=== PATIENT | male | born 1980 | race African-American/Black ===

== ENCOUNTER 2017-09-06 11:53 | Inpatient (IN) | payer MEDICAID ==
[~2017-09-06] VITALS: Ht 172.7 cm; Wt 70.8 kg
[2017-09-06] MEDS ORDERED: SODIUM CHLORIDE 0.9% 1,000 ML IV ONE (12:06)
[2017-09-06] MEDS ORDERED: LORAZEPAM 2MG/ML CPJ IV ONE (12:15)
[2017-09-06 12:36] LABS: BASOPHILS % 0.5 % (0.0-2.0); EOSINOPHILS % 0.2 % (0.0-5.0); HEMATOCRIT. 46.3 % (42.0-52.0); LYMPHOCYTES % 21.7 % (20.0-50.0); MEAN CORPUSCULAR HEMOGLOBIN 32.3 pg (28.0-32.0); MEAN CORPUSCULAR VOLUME 99.6 fL (80.0-94.0); MEAN PLATELET VOLUME 8.6 fl (7.4-10.4); MONOCYTES % 7.5 % (2.0-8.0); NEUTROPHILS % 70.1 % (40.0-76.0); PLATELET 124 x1000/uL (130-400); RED BLOOD CELL COUNT 4.65 mill/uL (4.7-6.1); RED CELL DISTRIBUTION WIDTH 14.2 % (11.6-14.6)
[2017-09-06 12:40] LABS: PROTHROMBIN TIME 10.5 sec (9.4-11.6)
[2017-09-06 12:49] LABS: CARBON DIOXIDE 16 mEq/L (21-32); CHLORIDE 95 mEq/L (98-107); ETHANOL BLOOD < 10 mg/dL; TROPONIN I < 0.02 ng/mL (0.00-0.04)
[2017-09-06 12:59] LABS: AMMONIA 241 uMol/L (<32)
[2017-09-06] MEDS ORDERED: LACTULOSE 20G/30ML UDC PO ONE (13:15)
[2017-09-06 13:21] LABS: CLARITY URINE CLEAR (CLEAR); COLOR URINE ORANGE (YELLOW); GLUCOSE URINE NEGATIVE (NEGATIVE); KETONES URINE TRACE (NEGATIVE); LEUKOCYTE ESTERASE URINE TRACE (NEGATIVE); NITRITE URINE NEGATIVE (NEGATIVE); OCCULT BLOOD URINE TRACE (NEGATIVE); PROTEIN URINE 1+ (NEGATIVE); SPECIFIC GRAVITY URINE 1.012 (1.005-1.030)
[2017-09-06 13:43] LABS: *AMPHETAMINES SCREEN URINE NEGATIVE (NEGATIVE); *BARBITURATES SCREEN URINE NEGATIVE (NEGATIVE); *BENZODIAZEPINES SCREEN URINE NEGATIVE (NEGATIVE); *COCAINE SCREEN URINE NEGATIVE (NEGATIVE); CANNABINOID URINE SCREEN NEGATIVE (NEGATIVE); METHADONE URINE SCREEN NEGATIVE (NEGATIVE); OPIATES URINE SCREEN NEGATIVE (NEGATIVE); PHENCYCLIDINE URINE SCREEN NEGATIVE (NEGATIVE)
[2017-09-06 20:00] VITALS: BP 145/93
[2017-09-06] MEDS ORDERED: CLONIDINE 0.1MG TABLET PO PRN (21:15)
[2017-09-06] MEDS ORDERED: ACETAMINOPHEN 650MG/20.3ML UDC GT PRN (21:15)
[2017-09-06] MEDS ORDERED: MAGNESIUM/ALUMINUM HYDROXIDE/SIMETHICONE 30ML UDC PO PRN (21:15)
[2017-09-06] MEDS ORDERED: IPRATROPIUM/ALBUTEROL 0.5-3(2.5)MG/3ML NEB INH PRN (21:15)
[2017-09-06] MEDS ORDERED: ACETAMINOPHEN 325MG TABLET PO PRN (21:15)
[2017-09-06] MEDS ORDERED: DIPHENHYDRAMINE 50MG/ML VIAL IV PRN (21:15)
[2017-09-06] MEDS ORDERED: ACETAMINOPHEN 650MG SUPP PR PRN (21:15)
[2017-09-06 21:20] VITALS: BP 145/93
[2017-09-06] MEDS ORDERED: LEVE750T10 PO (21:33)
[2017-09-06] MEDS ORDERED: SODIUM BICARBONATE 8.4% 1 MEQ/ML 50ML SYR IV NR (21:41)
[2017-09-06] MEDS ORDERED: NA PHOS,M-B/NA PHOS,DI-BA ENEMA 118ML PR PRN (21:45)
[2017-09-06] MEDS ORDERED: SODIUM CHLORIDE 0.45% 1,000 ML IV SCH (21:45)
[2017-09-06] MEDS: CHLORDIAZEPOXIDE 25MG CAPSULE PO SCH (22:13)
[2017-09-06] MEDS: SODIUM CHLORIDE 0.9% INJ 3ML FLUSH IVF SCH (22:14)
[2017-09-06] MEDS: LACTULOSE 20G/30ML UDC PO SCH (22:14)
[2017-09-07] VITALS (7 sets, daily range): BP systolic 128–149; BP diastolic 86–98
[2017-09-07] MEDS: SODIUM CHLORIDE 0.9% INJ 3ML FLUSH IVF SCH ×3 (05:45→21:59)
[2017-09-07] MEDS: CHLORDIAZEPOXIDE 25MG CAPSULE PO SCH ×3 (05:45→21:59)
[2017-09-07] MEDS: LACTULOSE 20G/30ML UDC PO SCH ×3 (05:45→21:59)
[2017-09-07 07:05] LABS: BASOPHILS % 0.5 % (0.0-2.0); EOSINOPHILS % 0.7 % (0.0-5.0); HEMATOCRIT. 39.4 % (42.0-52.0); HEMOGLOBIN. 13.4 g/dL (14.0-18.0); LYMPHOCYTES % 12.9 % (20.0-50.0); MEAN CORPUSCULAR HEMOGLOBIN 32.5 pg (28.0-32.0); MEAN PLATELET VOLUME 8.6 fl (7.4-10.4); MONOCYTES % 7.2 % (2.0-8.0); NEUTROPHILS % 78.7 % (40.0-76.0); PLATELET 83 x1000/uL (130-400); RED CELL DISTRIBUTION WIDTH 13.8 % (11.6-14.6)
[2017-09-07 07:47] LABS: CARBON DIOXIDE 24 mEq/L (21-32); CHLORIDE 100 mEq/L (98-107)
[2017-09-07 07:50] LABS: PHOSPHORUS 2.5 mg/dL (2.5-4.9)
[2017-09-07] MEDS ORDERED: POTASSIUM CHLORIDE 20MEQ TABLET SR PO NR (12:15)
[2017-09-07] MEDS ORDERED: LORAZEPAM 2MG/ML CPJ IM PRN (12:15)
[2017-09-07 12:31] LABS: AMMONIA 24 uMol/L (<32)
== END 2017-09-07 23:00 | disposition short-term general hospital (02) | DRG 53 ==
LOC: ER 12:14 → 5WST 13:21 → ENRESERV 20:38
PROVIDERS: ADMIT Family Medicine; ATTEND Family Medicine
DX: G40.509 Epileptic seizures related to external causes, not intractable, without status epilepticus (principal); G93.41 Metabolic encephalopathy; K72.90 Hepatic failure, unspecified without coma; F10.239 Alcohol dependence with withdrawal, unspecified; I10 Essential (primary) hypertension; Z91.81 History of falling; F17.210 Nicotine dependence, cigarettes, uncomplicated
CPT/HCPCS: 36415; 70450; 70486; 76700; 80048; 80053; 80076; 80305; 81001; 82140; 84100; 84484; 85025; 85610; 93005; 96361; 96374; 97162; 99285; G0482; J2060; J3490; J7030

== ENCOUNTER 2017-10-09 15:50 | Emergency (ER) | payer MEDICAID ==
[~2017-10-09] VITALS: Ht 177.8 cm; Wt 88.0 kg
[~2017-10-09 15:50] MED LIST: LEVE750T10 PO
[2017-10-09] MEDS ORDERED: LEVETIRACETAM 500MG TABLET PO ONE (17:00)
[2017-10-09 17:31] LABS: BASOPHILS % 0.5 % (0.0-2.0); EOSINOPHILS % 0.1 % (0.0-5.0); HEMATOCRIT. 40.6 % (42.0-52.0); HEMOGLOBIN. 14.2 g/dL (14.0-18.0); LYMPHOCYTES % 9.1 % (20.0-50.0); MEAN CORPUSCULAR HEMOGLOBIN 33.7 pg (28.0-32.0); MEAN CORPUSCULAR VOLUME 96.3 fL (80.0-94.0); MEAN PLATELET VOLUME 8.4 fl (7.4-10.4); MONOCYTES % 7.9 % (2.0-8.0); NEUTROPHILS % 82.4 % (40.0-76.0); PLATELET 136 x1000/uL (130-400); RED BLOOD CELL COUNT 4.21 mill/uL (4.7-6.1); RED CELL DISTRIBUTION WIDTH 14.1 % (11.6-14.6)
[2017-10-09 17:44] LABS: CARBON DIOXIDE 27 mEq/L (21-32); CHLORIDE 98 mEq/L (98-107)
[2017-10-09 19:23] VITALS: BP 138/88
== END 2017-10-09 19:40 | disposition home or self-care (01) ==
LOC: ER 15:58
DX: G40.909 Epilepsy, unspecified, not intractable, without status epilepticus (principal); I10 Essential (primary) hypertension
CPT/HCPCS: 36415; 80053; 85025; 99284

== ENCOUNTER 2017-12-23 13:37 | Emergency (ER) | payer MEDICAID ==
[~2017-12-23] VITALS: Ht 170.2 cm; Wt 75.0 kg
[2017-12-23] MEDS ORDERED: SODIUM CHLORIDE 0.9% 1,000 ML IV ONE (14:03)
[2017-12-23] MEDS ORDERED: LEVETIRACETAM 500MG PREMIX 100 ML IV ONE (14:15)
[2017-12-23 14:42] LABS: BASOPHILS % 0.9 % (0.0-2.0); EOSINOPHILS % 0.5 % (0.0-5.0); HEMATOCRIT. 44.8 % (42.0-52.0); HEMOGLOBIN. 14.7 g/dL (14.0-18.0); LYMPHOCYTES % 18.4 % (20.0-50.0); MEAN CORPUSCULAR HEMOGLOBIN 32.5 pg (28.0-32.0); MEAN CORPUSCULAR VOLUME 99.5 fL (80.0-94.0); MEAN PLATELET VOLUME 7.7 fl (7.4-10.4); MONOCYTES % 12.5 % (2.0-8.0); NEUTROPHILS % 67.7 % (40.0-76.0); PLATELET 308 x1000/uL (130-400); RED BLOOD CELL COUNT 4.51 mill/uL (4.7-6.1); RED CELL DISTRIBUTION WIDTH 14.4 % (11.6-14.6)
[2017-12-23 14:46] LABS: PROTHROMBIN TIME 10.5 sec (9.4-11.6)
[2017-12-23 14:56] LABS: CHLORIDE 102 mEq/L (98-107)
[2017-12-23] MEDS ORDERED: POTASSIUM CHLORIDE 20MEQ TABLET SR PO ONE (16:45)
[2017-12-23 17:27] VITALS: BP 149/94
== END 2017-12-23 17:33 | disposition home or self-care (01) ==
LOC: ER 13:43
DX: G40.909 Epilepsy, unspecified, not intractable, without status epilepticus (principal); E87.6 Hypokalemia; I10 Essential (primary) hypertension; R79.1 Abnormal coagulation profile
CPT/HCPCS: 36415; 80053; 85025; 85610; 96365; 99285; J1953; J7030

== ENCOUNTER 2018-02-08 06:49 | Emergency (ER) | payer MEDICAID ==
[~2018-02-08] VITALS: Ht 172.7 cm; Wt 68.0 kg
[2018-02-08] MEDS ORDERED: ONDANSETRON HCL 4MG/2ML VIAL IV STA (07:12)
[2018-02-08] MEDS ORDERED: SODIUM CHLORIDE 0.9% 1,000 ML IV ONE (07:12)
[2018-02-08] MEDS ORDERED: LEVETIRACETAM 500MG TABLET PO ONE (07:15)
[2018-02-08 07:36] LABS: HEMATOCRIT. 46.6 % (42.0-52.0); HEMOGLOBIN. 15.5 g/dL (14.0-18.0); MEAN CORPUSCULAR HEMOGLOBIN 32.1 pg (28.0-32.0); MEAN CORPUSCULAR VOLUME 96.7 fL (80.0-94.0); MEAN PLATELET VOLUME 8.2 fl (7.4-10.4); PLATELET 99 x1000/uL (130-400); RED BLOOD CELL COUNT 4.81 mill/uL (4.7-6.1); RED CELL DISTRIBUTION WIDTH 13.7 % (11.6-14.6)
[2018-02-08 07:42] LABS: CHLORIDE 99 mEq/L (98-107)
[2018-02-08 08:02] LABS: PLATELET ESTIMATE SLIGHTLY DECREASED
[2018-02-08] MEDS ORDERED: LORAZEPAM 2MG/ML CPJ ONE (08:13)
[2018-02-08] MEDS ORDERED: LORAZEPAM 2MG/ML CPJ IV ONE (08:30)
[2018-02-08] MEDS ORDERED: LEVETIRACETAM 500MG PREMIX 100 ML IV ONE (08:30)
[2018-02-08 13:06] VITALS: BP 137/80
== END 2018-02-08 13:00 | disposition home or self-care (01) ==
LOC: ER 06:49
DX: R56.9 Unspecified convulsions (principal); I10 Essential (primary) hypertension
CPT/HCPCS: 36415; 80053; 85025; 85610; 96361; 96365; 96375; 99285; J1953; J2060; J2405; J7030; Z7610

== ENCOUNTER 2018-02-21 17:39 | Emergency (ER) | payer MEDICAID ==
[~2018-02-21] VITALS: Ht 170.2 cm; Wt 65.0 kg
[2018-02-21 18:52] LABS: HEMATOCRIT. 42.1 % (42.0-52.0); HEMOGLOBIN. 14.3 g/dL (14.0-18.0); MEAN CORPUSCULAR VOLUME 97.1 fL (80.0-94.0); MEAN PLATELET VOLUME 6.8 fl (7.4-10.4); PLATELET 272 x1000/uL (130-400); RED BLOOD CELL COUNT 4.34 mill/uL (4.7-6.1); RED CELL DISTRIBUTION WIDTH 14.2 % (11.6-14.6)
[2018-02-21 19:01] LABS: CHLORIDE 104 mEq/L (98-107)
[2018-02-21 19:12] LABS: PLATELET ESTIMATE NORMAL
[2018-02-21] MEDS ORDERED: LEVETIRACETAM 100MG/ML ORAL SYR PO ONE (20:15)
[2018-02-21 20:20] VITALS: BP 156/85
[2018-02-21] MEDS ORDERED: LEVETIRACETAM 500MG TABLET PO NR (20:30)
== END 2018-02-21 20:35 | disposition home or self-care (01) ==
LOC: ER 17:39
DX: G40.909 Epilepsy, unspecified, not intractable, without status epilepticus (principal); I10 Essential (primary) hypertension
CPT/HCPCS: 36415; 80048; 85025; 99284; Z7610

== ENCOUNTER 2020-02-01 21:49 | Emergency (ER) | payer MEDICAID ==
[~2020-02-01] VITALS: Ht 177.8 cm; Wt 77.0 kg
[2020-02-01] MEDS ORDERED: LEVETIRACETAM 500MG PREMIX 100 ML IV ONE (22:30)
[2020-02-01] MEDS ORDERED: LORAZEPAM 2MG/ML CPJ ONE (23:17)
[2020-02-01] MEDS ORDERED: LORAZEPAM 2MG/ML CPJ IV ONE (23:30)
[2020-02-01 23:46] LABS: HEMATOCRIT 42.2 % (42.0-52.0); HEMOGLOBIN 13.9 g/dL (14.0-18.0); MEAN CORPUSCULAR HEMOGLOBIN 34.3 pg (28.0-32.0); MEAN CORPUSCULAR VOLUME 104.3 fL (80.0-94.0); PLATELET 195 x1000/uL (130-400); RED BLOOD CELL COUNT 4.05 mill/uL (4.7-6.1); RED CELL DISTRIBUTION WIDTH 14.3 % (11.6-14.6)
[2020-02-01 23:51] LABS: CHLORIDE 102 mEq/L (98-107)
[2020-02-01 23:57] LABS: ETHANOL BLOOD 12 mg/dL
[2020-02-02] MEDS ORDERED: LORAZEPAM 2MG/ML CPJ IV ONE ×2 (00:15→01:15)
[2020-02-02] MEDS ORDERED: ZIPRASIDONE MESYLATE 20MG/VIAL IM ONE (02:30)
[2020-02-02 04:04] VITALS: BP 126/76
== END 2020-02-02 04:14 | disposition short-term general hospital (02) ==
LOC: ER 21:49
DX: R56.9 Unspecified convulsions (principal); I10 Essential (primary) hypertension; F10.129 Alcohol abuse with intoxication, unspecified; Y90.0 Blood alcohol level of less than 20 mg/100 ml
CPT/HCPCS: 36415; 70450; 80053; 80320; 85027; 96365; 96372; 96375; 96376; 99285; J1953; J2060; J3486; G0480

== ENCOUNTER 2021-12-03 18:05 | Emergency (ER) | payer MEDICAID ==
[~2021-12-03] VITALS: Ht 182.9 cm; Wt 102.0 kg
[2021-12-03 18:07] VITALS: BP 138/100
[2021-12-03 19:32] LABS: BASOPHILS % 0.3 % (0.0-2.0); EOSINOPHILS % 0.2 % (0.0-5.0); HEMATOCRIT. 42.5 % (42.0-52.0); HEMOGLOBIN. 14.4 g/dL (14.0-18.0); LYMPHOCYTES % 22.9 % (20.0-50.0); MEAN CORPUSCULAR HEMOGLOBIN 34.1 pg (28.0-32.0); MEAN CORPUSCULAR VOLUME 100.6 fL (80.0-94.0); MEAN PLATELET VOLUME 7.6 fl (7.4-10.4); MONOCYTES % 7.8 % (2.0-8.0); NEUTROPHILS % 68.8 % (40.0-76.0); PLATELET 178 x1000/uL (130-400); RED BLOOD CELL COUNT 4.23 mill/uL (4.7-6.1); RED CELL DISTRIBUTION WIDTH 13.1 % (11.6-14.6)
[2021-12-03 20:03] LABS: CHLORIDE 104 mEq/L (98-107)
[2021-12-03] MEDS ORDERED: CHLORPROMAZINE HCL 25 MG TABLET PO ONE (20:15)
[2021-12-03] MEDS ORDERED: PROMETHAZINE HCL 25MG TABLET PO PRN (20:15)
== END 2021-12-03 21:44 | disposition home or self-care (01) ==
LOC: ER 18:05
DX: S09.8XXA Other specified injuries of head, initial encounter (principal); S06.0X1A Concussion with loss of consciousness of 30 minutes or less, initial encounter; R06.6 Hiccough; J45.909 Unspecified asthma, uncomplicated; I10 Essential (primary) hypertension; R56.9 Unspecified convulsions; W03.XXXA Other fall on same level due to collision with another person, initial encounter; Y93.67 Activity, basketball; Y92.9 Unspecified place or not applicable
CPT/HCPCS: 36415; 80053; 84484; 85025; 93005; 99285; Q0161

== ENCOUNTER 2024-05-18 15:12 | Emergency (ER) | payer MEDICAID ==
[~2024-05-18] VITALS: Ht 172.7 cm; Wt 65.0 kg
[2024-05-18 15:23] VITALS: O2SAT 95
[2024-05-18] MEDS: LEVETIRACETAM 1000MG PREMIX 100 ML IV ONE (15:30)
[2024-05-18] MEDS: LORAZEPAM 2MG/ML INJ IV ONE (15:37)
[2024-05-18 17:21] LABS: BASOPHILS % 0.3 % (0.0-2.0); DIFFERENTIAL COMMENT 0; HEMATOCRIT. 39.1 % (42.0-52.0); HEMOGLOBIN. 12.8 g/dL (14.0-18.0); LYMPHOCYTES % 8.8 % (20.0-50.0); MEAN CORPUSCULAR HEMOGLOBIN 31.6 pg (28.0-32.0); MEAN CORPUSCULAR HGB CONC 32.8 g/dL (31.0-37.0); MEAN CORPUSCULAR VOLUME 96.5 fL (80.0-94.0); MEAN PLATELET VOLUME 9.4 fl (7.4-10.4); MONOCYTES % 12.9 % (2.0-8.0); PLATELET 148 x1000/uL (130-400); RED BLOOD CELL COUNT 4.05 mill/uL (4.7-6.1); RED CELL DISTRIBUTION WIDTH 15.8 % (11.6-14.6); WHITE BLOOD COUNT 7.8 x1000/uL (4.5-11.0)
[2024-05-18 17:35] LABS: CARBON DIOXIDE 20 mEq/L (21-32); CHLORIDE 98 mEq/L (98-107); POTASSIUM 3.5 mEq/L (3.5-5.1); SODIUM 133 mEq/L (136-145)
[2024-05-18 17:36] LABS: CALCIUM 9.4 mg/dL (8.7-10.4)
[2024-05-18 17:40] LABS: CREATININE 1.1 mg/dL (0.6-1.3)
[2024-05-18 17:41] LABS: GLUCOSE 104 mg/dL (70-105); UREA NITROGEN BLOOD 7 mg/dL (9-23)
[2024-05-18 17:58] LABS: ETHANOL BLOOD < 10 mg/dL (<10)
[2024-05-18] MEDS ORDERED: LEVE750T10 PO (18:57)
[2024-05-18 21:20] VITALS: BP 129/87; PULSE 90; RESP 19; TEMP 98
== END 2024-05-18 21:26 | disposition home or self-care (01) ==
LOC: ER 15:12
DX: R56.9 Unspecified convulsions (principal); F10.20 Alcohol dependence, uncomplicated; J45.909 Unspecified asthma, uncomplicated; I10 Essential (primary) hypertension; Y90.0 Blood alcohol level of less than 20 mg/100 ml
CPT/HCPCS: 80048; 80320; 85025; 36415; 96365; 96375; 99285; J1953; J2060; Z7610 ×2; G0480

== ENCOUNTER 2024-10-10 22:05 | Emergency (ER) | payer MEDICAID ==
[~2024-10-10] VITALS: Ht 170.2 cm; Wt 76.0 kg
[2024-10-10 22:06] VITALS: O2SAT 97
[2024-10-10] MEDS: LEVETIRACETAM 1000MG PREMIX 100 ML IV ONE (22:45)
[2024-10-11 00:26] VITALS: BP 126/78; PULSE 88; RESP 15; TEMP 36.78072; O2SAT 97
== END 2024-10-11 00:43 | disposition home or self-care (01) ==
LOC: ER 22:05
DX: R56.9 Unspecified convulsions (principal); J45.909 Unspecified asthma, uncomplicated; I10 Essential (primary) hypertension; Z91.148 Patient's other noncompliance with medication regimen for other reason
CPT/HCPCS: 99284; 96365; J1953

== ENCOUNTER 2025-04-06 00:27 | Emergency (ER) | payer MEDICAID ==
[~2025-04-06] VITALS: Ht 175.3 cm; Wt 73.0 kg
[2025-04-06 00:38] VITALS: TEMP 36.7; O2SAT 96
[2025-04-06] MEDS: LEVETIRACETAM 500MG PREMIX 100 ML IV ONE (01:05)
[2025-04-06] MEDS: SODIUM CHLORIDE 0.9% 1,000 ML IV ONE (01:05)
[2025-04-06] MEDS: ONDANSETRON HCL 4MG/2ML INJ IV ONE (01:29)
[2025-04-06 01:35] LABS: HEMATOCRIT. 37.8 % (42.0-52.0); HEMOGLOBIN. 12.3 g/dL (14.0-18.0); MEAN CORPUSCULAR HEMOGLOBIN 31.1 pg (28.0-32.0); MEAN CORPUSCULAR HGB CONC 32.6 g/dL (31.0-37.0); MEAN CORPUSCULAR VOLUME 95.4 fL (80.0-94.0); MEAN PLATELET VOLUME 7.9 fl (7.4-10.4); PLATELET 207 x1000/uL (130-400); RED BLOOD CELL COUNT 3.97 mill/uL (4.7-6.1); RED CELL DISTRIBUTION WIDTH 15.2 % (11.6-14.6); WHITE BLOOD COUNT 12.4 x1000/uL (4.5-11.0)
[2025-04-06 01:52] LABS: CHLORIDE 101 mEq/L (98-107); POTASSIUM 3.7 mEq/L (3.5-5.1); SODIUM 139 mEq/L (136-145)
[2025-04-06 01:53] LABS: CALCIUM 9.5 mg/dL (8.7-10.4); CARBON DIOXIDE 15 mEq/L (21-32)
[2025-04-06 01:58] LABS: CREATININE 1.3 mg/dL (0.6-1.3); GLUCOSE 171 mg/dL (70-105); TROPONIN I HIGH SENSITIVITY 6 ng/L (3.0-53); UREA NITROGEN BLOOD 10 mg/dL (9-23)
[2025-04-06 01:59] LABS: ETHANOL BLOOD < 10 mg/dL (<10)
[2025-04-06 02:22] LABS: DIFFERENTIAL COMMENT 1
[2025-04-06 03:05] VITALS: TEMP 98.1
[2025-04-06 03:14] LABS: CLARITY URINE CLEAR (CLEAR); COLOR URINE YELLOW (YELLOW); GLUCOSE URINE NEGATIVE (NEGATIVE); KETONES URINE 2+ (NEGATIVE); LEUKOCYTE ESTERASE URINE NEGATIVE (NEGATIVE); NITRITE URINE NEGATIVE (NEGATIVE); OCCULT BLOOD URINE 2+ (NEGATIVE); PROTEIN URINE 1+ (NEGATIVE); SPECIFIC GRAVITY URINE 1.015 (1.005-1.030); UROBILINOGEN URINE 0.2 E.U./dL (0.2-1.0)
[2025-04-06] MEDS ORDERED: KEPP500 MT (03:26)
[2025-04-06 03:38] LABS: *AMPHETAMINES SCREEN URINE NEGATIVE (NEGATIVE); *BARBITURATES SCREEN URINE NEGATIVE (NEGATIVE); *BENZODIAZEPINES SCREEN URINE NEGATIVE (NEGATIVE); *COCAINE SCREEN URINE NEGATIVE (NEGATIVE); CANNABINOID URINE SCREEN NEGATIVE (NEGATIVE); ECSTASY MDMA SCREEN URINE NEGATIVE (NEGATIVE); METHADONE URINE SCREEN NEGATIVE (NEGATIVE); OPIATES URINE SCREEN NEGATIVE (NEGATIVE); PHENCYCLIDINE URINE SCREEN NEGATIVE (NEGATIVE)
[2025-04-06] MEDS: ONDANSETRON HCL 4MG/2ML INJ IV NR (03:57)
[2025-04-06 03:58] VITALS: BP 119/71; PULSE 83; RESP 16; O2SAT 95
[2025-04-06 04:49] LABS: BACTERIA URINE NONE SEEN; RBC URINE NONE SEEN /hpf (0-2); SQUAMOUS EPITHELIAL CELL URINE RARE /lpf (RARE/1+); WBC URINE NONE SEEN /hpf (0-2)
[2025-04-06 05:14] LABS: PLATELET ESTIMATE NORMAL
== END 2025-04-06 04:00 | disposition home or self-care (01) ==
LOC: ER 00:27
DX: G40.909 Epilepsy, unspecified, not intractable, without status epilepticus (principal); J45.909 Unspecified asthma, uncomplicated; I10 Essential (primary) hypertension; Z91.148 Patient's other noncompliance with medication regimen for other reason; Z00.00 Encounter for general adult medical examination without abnormal findings
CPT/HCPCS: 80305; 80048; 81003; 80320; 85025; 84484; 36415; 96365; 96375; 99284; J1953; J2405; J7030; Z7610; G0480